=== PATIENT | female | born 1940 | race Caucasian/White ===

== ENCOUNTER → 2018-10-28 | Outpatient (CLI) | payer MEDICARE, SELFPAY ==
--- NOTE | 2018-10-28 08:43 | RDU_ITS ---
Reason For Study: HTN Disorder Right Renal Artery Left Renal Artery Right renal artery ostium Left renal artery ostium 68.4/13.8 166.4/38.9 RSV/EDV. PSV/EDV. Right renal artery proximal Left renal artery proximal PSV/EDV 103.1/17.7 PSV/EDV. 68.4/18.2 . Right renal artery mid 106.2/22.3 Left renal artery mid 109.1/25.4 PSV/EDV. PSV/EDV . Right renal artery distal 85.7/19.1 Left renal artery distal 60.6/15.4 PSV/EDV. PSV/EDV. Right RAR 1.91. Left RAR 1.26. Right Renal Parenchyma Left Renal Parenchyma Upper Pole Medula 38.9/8.8 PSV/EDV. Left upper pole medulla 30.7/7.1 Right upper pole medulla EDR 0.23 . PSV/EDV . Right upper pole medulla R.I. Left upper pole medulla EDR 0.23 . 0.77 . Left upper pole medulla R.I. 0.77 . Upper Sreekanth Cortx 21.3/5.3 PSV/EDV. UP Cortex 20.8/6.5 PSV/EDV. Right upper pole cortex EDR 0.25 . Left upper pole cortex EDR 0.31 . Right upper pole cortex R.I. 0.75 . Left upper pole cortex R.I. 0.69 . Right lower Pole medulla 31.8/7.4 Left lower Pole medulla 29.6/5.4 PSV/EDV . PSV/EDV . Right lower pole medulla EDR 0.23 . Left lower pole medulla EDR 0.18 . Right lower pole medulla R.I. Left lower pole medulla R.I. 0.82 . 0.77 . Lower Pole Cortx 24.1/7.6 PSV/EDV. Lower Pole Cortex 17.7/4.5 PSV/EDV. Left lower pole cortex EDR 0.31 . Right lower pole cortex EDR 0.26 . Left lower pole cortex R.I. 0.68 . Right lower pole cortex R.I. 0.75 . Left Renal Hilar Right Renal Hilar LT Hilar avg 45.6/13.6 PSV/EDV . Right Hilar avg 37.2/7.1 PSV/EDV. Left hilar acceleration time 40 Right hilar acceleration time 50 m/sec. m/sec. Left Renal Dimensions Right Renal Dimensions Left kidney size 8.53 cm . Right kidney size 8.49 cm . Left cortical dimension 1.43 cm . Right cortical dimension 1.57 cm . Aorta Proximal abdominal aorta 1.29 x 1.25 cm . Proximal abdominal aorta peak systolic velocity is 86.9 cm/sec . Distal abdominal aorta 1.23 x 1.20 cm . Distal abdominal aorta peak systolic velocity is 81.5 cm/sec . Interpretation Summary Dimensions of the intra-abdominal aorta appear normal, without evidence of aneurysmal dilatation. Renal artery velocities are bilaterally normal. Acceleration times are normal bilaterally. Renal- aortic ratios are also bilaterally normal. There is no evidence of hemodynamically significant renal artery stenosis on either side. Renovascular resistance appears to be bilaterally elevated . The right cortical dimension is increased. The left cortical dimension is normal. Kidneys are slightly small in size bilaterally. Ordering Physician: Aniyah Truong Referring Physician: Eric Bullock M.D. Performed By: Whitney Preciado RVT
[2018-10-28 09:49] LABS: Hematocrit 40.2 % (37-47); Hemoglobin 12.7 g/dL (12.0-15.0); Mean Corp Hgb Conc 31.6 g/dL (32-36); Mean Corpuscular Hgb 31.8 pg (27.0-32.0); Mean Corpuscular Volume 100.8 fL (81-99); Mean Platelet Vol. 11.4 fl (6.2-12.0); Platelet Count 292 K/mm3 (150-450); RBC Distribution Width CV 12.8 % (11.6-14.6); RBC Distribution Width SD 48.1 fl (35.1-43.9); Red Blood Count 3.99 M/mm3 (4.2-5.4); White Blood Count 5.2 K/mm3 (4.4-11.0)
[2018-10-28 10:14] LABS: Albumin, Serum 3.9 g/dL (3.2-5.0); BUN 23 mg/dL (7-18); BUN/Creat Ratio 18.3 RATIO (10-20); Calcium,Total 9.5 mg/dL (8.5-10.1); Chloride 107 mmol/L (98-107); Creatinine, Serum 1.26 mg/dL (0.55-1.02); EST Glomerular Filtration Rate 44 mL/min (>60); Est Glom Filt Rate - Afr Amer 53 mL/min (>60); Glucose 95 mg/dL (74-106); Phosphorus 2.6 mg/dL (2.5-4.9); Potassium 4.3 mmol/L (3.5-5.1); Sodium Level 144 mmol/L (136-145)
== END | disposition home or self-care (01) ==
LOC: CVS 08:31
PROVIDERS: Family Provider Family Medicine; PCP Family Medicine; Referring Provider Internal Medicine Nephrology; Visit Provider Internal Medicine Nephrology
DX: I10 Essential (primary) hypertension (principal)
CPT/HCPCS: 36415; 80069; 85027; 93975

== ENCOUNTER → 2019-04-20 10:59 | Outpatient (CLI) | payer MEDICARE, SELFPAY ==
[2019-04-20 11:29] LABS: Hematocrit 43.4 % (37-47); Hemoglobin 13.8 g/dL (12.0-15.0); Mean Corp Hgb Conc 31.8 g/dL (32-36); Mean Corpuscular Hgb 30.9 pg (27.0-32.0); Mean Corpuscular Volume 97.1 fL (81-99); Mean Platelet Vol. 10.9 fl (6.2-12.0); Platelet Count 345 K/mm3 (150-450); RBC Distribution Width CV 12.6 % (11.6-14.6); RBC Distribution Width SD 45.1 fl (35.1-43.9); Red Blood Count 4.47 M/mm3 (4.2-5.4); White Blood Count 5.7 K/mm3 (4.4-11.0)
[2019-04-20 11:51] LABS: Albumin, Serum 4.2 g/dL (3.2-5.0); BUN 18 mg/dL (7-18); BUN/Creat Ratio 14.3 RATIO (10-20); Calcium,Total 9.8 mg/dL (8.5-10.1); Chloride 110 mmol/L (98-107); Creatinine, Serum 1.26 mg/dL (0.55-1.02); EST Glomerular Filtration Rate 43 mL/min (>60); Est Glom Filt Rate - Afr Amer 53 mL/min (>60); Glucose 100 mg/dL (74-106); Potassium 4.8 mmol/L (3.5-5.1); Sodium Level 140 mmol/L (136-145)
== END ==
PROVIDERS: Family Provider Family Medicine; PCP Family Medicine; Referring Provider Internal Medicine Nephrology; Visit Provider Internal Medicine Nephrology
DX: N17.9 Acute kidney failure, unspecified (principal)
CPT/HCPCS: 36415; 80069; 85027

== ENCOUNTER → 2019-12-17 10:00 | Outpatient (CLI) | payer MEDICARE, SELFPAY ==
[2019-12-17 11:15] LABS: BUN 14 mg/dL (7-18); BUN/Creat Ratio 11.6 RATIO (10-20); Calcium,Total 9.1 mg/dL (8.5-10.1); Chloride 107 mmol/L (98-107); Creatinine, Serum 1.21 mg/dL (0.55-1.02); EST Glomerular Filtration Rate 45 mL/min (>60); Est Glom Filt Rate - Afr Amer 55 mL/min (>60); Glucose 103 mg/dL (74-106); Phosphorus 2.7 mg/dL (2.5-4.9); Potassium 4.6 mmol/L (3.5-5.1); Sodium Level 138 mmol/L (136-145)
== END ==
PROVIDERS: PCP Preventive Medicine Occupational Medicine; Referring Provider Internal Medicine Nephrology; Visit Provider Internal Medicine Nephrology
DX: N17.9 Acute kidney failure, unspecified (principal)
CPT/HCPCS: 36415; 80069